=== PATIENT | female | born 1940 | race Caucasian/White ===

== ENCOUNTER → 2023-04-29 09:05 | Outpatient (REF) | payer MEDICARE, SELFPAY | LOC: DHCBS HW 09:05 | PROVIDERS: ATTENDING PHYSICIAN Nuclear Medicine Nuclear Cardiology; FAMILY PHYSICIAN Internal Medicine | DX: R06.02 Shortness of breath (principal); R07.9 Chest pain, unspecified; R00.2 Palpitations | CPT/HCPCS: 93306 ==

== ENCOUNTER → 2023-06-01 09:24 | Outpatient (REF) | payer MEDICARE, SELFPAY | LOC: RAD 09:24 | PROVIDERS: ATTENDING PHYSICIAN Internal Medicine Rheumatology; FAMILY PHYSICIAN Internal Medicine | DX: M81.0 Age-related osteoporosis without current pathological fracture (principal) | CPT/HCPCS: 77080; 77081 ==

== ENCOUNTER → 2023-06-10 12:01 | Outpatient (REF) | payer MEDICARE, SELFPAY | LOC: RAD 12:01 | PROVIDERS: ATTENDING PHYSICIAN Nurse Practitioner Family | DX: R06.02 Shortness of breath (principal); R05.2 Subacute cough | CPT/HCPCS: 71046 ==

== ENCOUNTER → 2023-08-07 14:11 | Outpatient (REF) | payer MEDICARE, SELFPAY | LOC: HWRAD 14:11 | PROVIDERS: ATTENDING PHYSICIAN Nurse Practitioner Adult Health; FAMILY PHYSICIAN Internal Medicine | DX: R05.2 Subacute cough (principal) | CPT/HCPCS: 71250 ==

== ENCOUNTER → 2023-10-06 10:28 | Outpatient (REF) | payer MEDICARE, SELFPAY ==
[2023-10-06 11:20] LABS: % Basophils 0.6 % (0-2); % Immature Granulocytes 0.3 % (0-0.5); % Lymphocytes 16.5 % (20.5-51.1); % Monocytes 6.5 % (1.7-9.3); % Neutrophils 75.1 % (42.2-75.2); Absolute Eosinophils 0.1 10^3/uL (0-0.7); Absolute Lymphocytes 1.2 10^3/uL (1.2-3.4); Absolute Monocytes 0.5 10^3/uL (0.1-0.6); Absolute Neutrophils 5.2 10^3/uL (1.4-6.5); Hematocrit 38.7 % (37.0-47.0); Hemoglobin 12.8 g/dL (12.0-16.0); Mean Corp Hgb Conc. 33.1 g/dL (33.0-37.0); Mean Corpuscular Hgb 30.3 pg (27.0-31.0); Mean Corpuscular Volume 91.5 fL (81.0-99.0); Mean Platelet Volume 10.8 fL (7.4-10.4); Nucleated Red Blood Cells % 0 %; Platelet Count 191 10^3/uL (130-400); Red Blood Cell Count 4.23 10^6/uL (4.20-5.40); Red Cell Dist. Width 14.2 % (11.5-14.5)
[2023-10-06 12:19] LABS: ALT (SGPT) 11 U/L (0-35); AST (SGOT) 18 U/L (14-36); Albumin 4.5 g/dl (3.5-5.0); Alkaline Phosphatase 43 U/L (38-126); Blood Urea Nitrogen 18 mg/dl (7-17); Calcium 10.3 mg/dl (8.4-10.2); Carbon Dioxide 24 mmol/L (22-30); Chloride 105 mmol/L (98-107); Glucose 101 mg/dl (70-99); HDL Cholesterol 36 mg/dl; LDL Cholesterol, Calculated 139 mg/dl; Potassium 4.9 mmol/L (3.5-5.1); Sodium 140 mmol/L (135-145); Total Bilirubin 0.9 mg/dl (0.2-1.3); Total Cholesterol 208 mg/dl (50-199); Total Protein 6.7 g/dl (6.3-8.2); Triglyceride 169 mg/dl (10-149); Very Low Density Lipoprotein 33 mg/dl (0-30); eGFR 55.55
[2023-10-06 12:25] LABS: Amylase 96 U/L (30-110); Lipase 320 U/L (23-300)
[2023-10-06 12:42] LABS: TSH Reflex To Free T4 2.39 uIU/ml (0.47-4.68)
[2023-10-07 12:01] LABS: H. pylori Breath Test Negative (Negative)
== END ==
LOC: REG 10:28
PROVIDERS: ATTENDING PHYSICIAN Nurse Practitioner Family; FAMILY PHYSICIAN Internal Medicine
DX: Z86.19 Personal history of other infectious and parasitic diseases (principal); R35.0 Frequency of micturition; R19.7 Diarrhea, unspecified; R11.0 Nausea; R10.84 Generalized abdominal pain; E78.2 Mixed hyperlipidemia; M06.9 Rheumatoid arthritis, unspecified; E21.3 Hyperparathyroidism, unspecified; G30.9 Alzheimer's disease, unspecified; F43.23 Adjustment disorder with mixed anxiety and depressed mood
CPT/HCPCS: 36415; 80053; 80061; 82150; 83013; 83690; 84443; 85025

== ENCOUNTER → 2023-10-16 07:27 | Outpatient (REF) | payer MEDICARE, SELFPAY | LOC: HWRAD 07:27 | PROVIDERS: ATTENDING PHYSICIAN Nurse Practitioner Family | DX: R74.8 Abnormal levels of other serum enzymes (principal); R11.0 Nausea | CPT/HCPCS: 74177; Q9967 ==

== ENCOUNTER → 2023-11-09 06:42 | Outpatient (REF) | payer MEDICARE, SELFPAY | LOC: RAD 06:42 | PROVIDERS: ATTENDING PHYSICIAN Nurse Practitioner Adult Health; FAMILY PHYSICIAN Internal Medicine | DX: R93.89 Abnormal findings on diagnostic imaging of other specified body structures (principal) | CPT/HCPCS: 71250 ==

== ENCOUNTER → 2023-11-30 12:37 | Outpatient (REF) | payer MEDICARE, SELFPAY ==
[2023-11-30 18:43] LABS: Urine Albumin Trace (Neg - Trace); Urine Bilirubin 3+ (Negative); Urine Character Slightly Cloudy (Clear); Urine Glucose Negative (Negative); Urine Ketone Negative (Negative); Urine Leukocyte 2+ (Negative); Urine Nitrite Positive (Negative); Urine Occult Blood 1+ (Negative); Urine Specific Gravity 1.015 (<1.030); Urine Urobilinogen 4+ (Neg - 1+)
[2023-11-30 18:52] LABS: Urine Color Amber
[2023-11-30 19:16] LABS: Urine Squamous Cell >30 /LPF (Few)
[2023-11-30 19:17] LABS: Urine Bacteria Few (Negative); Urine White Cell >100 /HPF (0-5)
== END ==
LOC: CLAB 12:37
PROVIDERS: ATTENDING PHYSICIAN Nurse Practitioner Family
DX: R30.0 Dysuria (principal)
CPT/HCPCS: 81003; 81015; 87086; 87088; 87186

== ENCOUNTER → 2024-01-23 07:47 | Outpatient (REF) | payer MEDICARE, SELFPAY | LOC: REG 07:47 | PROVIDERS: ATTENDING PHYSICIAN Physician Assistant; FAMILY PHYSICIAN Internal Medicine | DX: M25.559 Pain in unspecified hip (principal); M25.569 Pain in unspecified knee | CPT/HCPCS: 73523; 73560; 73565 ==

== ENCOUNTER → 2024-01-26 11:54 | Outpatient (REF) | payer MEDICARE, SELFPAY | LOC: HWRAD 11:54 | PROVIDERS: ATTENDING PHYSICIAN Nurse Practitioner Adult Health; FAMILY PHYSICIAN Internal Medicine | DX: R93.89 Abnormal findings on diagnostic imaging of other specified body structures (principal) | CPT/HCPCS: 71250 ==

== ENCOUNTER → 2024-04-05 07:57 | Outpatient (REF) | payer MEDICARE, SELFPAY ==
[2024-04-05 08:52] LABS: Hematocrit 40.8 % (37.0-47.0); Hemoglobin 13.4 g/dL (12.0-16.0); Mean Corp Hgb Conc. 32.8 g/dL (33.0-37.0); Mean Corpuscular Hgb 29.6 pg (27.0-31.0); Mean Corpuscular Volume 90.3 fL (81.0-99.0); Mean Platelet Volume 10.9 fL (7.4-10.4); Platelet Count 188 10^3/uL (130-400); Red Blood Cell Count 4.52 10^6/uL (4.20-5.40); Red Cell Dist. Width 13.3 % (11.5-14.5); White Blood Cell Count 5.1 10^3/uL (4.8-10.8)
[2024-04-05 09:14] LABS: Blood Urea Nitrogen 17 mg/dl (7-17); Calcium 9.7 mg/dl (8.4-10.2); Carbon Dioxide 26 mmol/L (22-30); Chloride 104 mmol/L (98-107); Glucose 109 mg/dl (70-99); Potassium 4.7 mmol/L (3.5-5.1); Sodium 139 mmol/L (135-145); eGFR > 60.00
== END ==
LOC: SDSPAT 07:57
PROVIDERS: ATTENDING PHYSICIAN Specialist; FAMILY PHYSICIAN Internal Medicine
DX: Z01.818 Encounter for other preprocedural examination (principal)
CPT/HCPCS: 36415; 80048; 85027; 93005

== ENCOUNTER 2024-04-07 06:23 | Day surgery (SDC) | payer MEDICARE, SELFPAY ==
--- NOTE | 2024-04-05 15:59 | PTCARENOTE ---
Abn ECG, Dr. Lucas notified, no additional interventions requested.
[2024-04-07] VITALS (7 sets, daily range): BP systolic 117–147; BP diastolic 57–74; BMI 28.2
[2024-04-07] MEDS: NORMOSOL-R/PLASMALYTE-A 1000 IV (09:20)
[2024-04-07] MEDS: SYRINGE NON-PUMP 50 ML IRRIG ×2 (11:50→11:51)
[2024-04-07] MEDS: SYRINGE NON-PUMP 50 MG IRRIG ×2 (11:50→11:51)
[2024-04-07] MEDS: DILAUDID 0.25 MG IV ×2 (11:55→12:04)
--- NOTE | 2024-04-07 13:07 | SUR.PHASEI ---
medicated x2 with dilaudid for pain during chemo dwell with relief. chemo drained and piper discontinued using ultrasound technician at 1300. comfortable discharge to [facility] with chemo precautions
== END 2024-04-07 13:44 | disposition home or self-care (01) ==
LOC: SDS 06:23
PROVIDERS: ATTENDING PHYSICIAN Specialist; FAMILY PHYSICIAN Internal Medicine
DX: D30.3 Benign neoplasm of bladder (principal); D49.4 Neoplasm of unspecified behavior of bladder
CPT/HCPCS: 52234; 88305; J9201

== ENCOUNTER 2024-04-09 12:12 | Inpatient (IN) | payer MEDICARE, SELFPAY ==
[2024-04-09] VITALS (10 sets, daily range): BP systolic 122–148; BP diastolic 57–78; BMI 30.9
--- NOTE | 2024-04-09 06:12 | ED.GENMED ---
History of Present Illness
General
Chief Complaint: Abdominal Pain
Time Seen by Provider: 04/09/24 06:12
History of Present Illness
History of Present Illness:
TIME OF INITIAL ENCOUNTER: 6:15 AM
HPI: The patient had TURBT with Dr. Erwin 2 days ago. She also had intravesicular administration of gemcitabine chemo. She had a procedure as she was having frequent UTIs over the year and had a cystoscopy 2 weeks ago that showed the mass. She
has been having URI type of symptoms recently as well but has not had fevers. Her has the same URI type of symptoms. She states that she had a normal bowel movement yesterday.
EXAM:
GENERAL: Well appearing in mild distress
HEENT: Moist oral mucosa, some nasal congestion noted
CARDIOVASCULAR: No murmurs, normal heart rate, regular rhythm, No chest wall tenderness
PULMONARY: No respiratory distress, breath sounds are clear and equal
ABDOMEN: Soft with no peritoneal signs, moderate tenderness in the lower abdomen more so on the right side
NEUROLOGIC: Excellent strength all extremities, no coordination deficits
PSYCHIATRIC: Appropriate mental status, normal insight and judgement
EXTREMITIES: Nontender, no edema, moves all extremities equally
SKIN: No rash, no lesions
NUMBER AND COMPLEXITY OF PROBLEMS ADDRESSED AT THE ENCOUNTER
� Chronic conditions affecting care: Some memory impairment, hyperlipidemia, has had ovarian cysts, bullous pemphigoid, anxiety
� Acute Exacerbation and/or Progression of Chronic Illness:
� Differential Diagnosis includes: Constipation, procedural complication, appendicitis, mesenteric adenitis, abdominal wall strain
AMOUNT AND/OR COMPLEXITY OF DATA TO BE REVIEWED AND ANALYZED
� I performed an independent evaluation of and my interpretation is:
EKG:
CT: I personally reviewed CT imaging. There is a lot of inflammatory changes around the bladder. Radiologist suspects extra neobladder rupture. Patient also is noted to have bilateral hydroureter as well as reactive ileus.
X-rays:
Laboratory Studies: White count 8.6, sodium 133, bicarb 19, BUN 39, creatinine 3.4, urinalysis suggest infection
Other:
� Review of other/old records: I reviewed Dr. Erwin' note from the other day. The patient's last creatinine was normal.
� Clinical information was obtained by an independent historian: I spoke to at bedside
� Prescriptions/Medications Considered but not given:
� Further testing considered but not performed:
RISK OF COMPLICATIONS AND/OR MORBIDITY OR MORTALITY OF PATIENT MANAGEMENT
� Social determinants of health affecting care: Lives at home
� Discussion with other providers: Dr. Hoffman below
� Escalation of care including admission/observation vs risk of discharge considered: The patient appears rather uncomfortable. Low-dose Dilaudid given. Will obtain CT imaging given the amount of tenderness.
ANY OTHER UPDATES:
The patient is found to be in RUTH. She was initially given IV fluids. She did not initially have a sensation to void.
7:45 AM: I discussed case with Dr. Guido who will admit to his service. Will place Syed and placed on antibiotics as well.
Past History
Past History
ED Past Medical History: Other (Rheumatoid arthritis-on biologics and plaquenil, remote hx of pancreatitis)
ED Past Surgical History: Cholecystectomy and Gynecological (hyster)
Social History
Tobacco: Non-smoker
Personal:
Living: with family
Phy Exam
Physical Exam
Physical Exam:
See HPI
Course
Orders/Labs/Results
Orders:
Orders
04/09/24 06:22
CT Abd/pel Without Iv Or Oral Urgent
Reason For Exam: RLQ pain,'not sure if still has append', TURBPT 2d
0.9% Sodium Chloride 500 ml [Nss] 500 ml IV BOLUS
HYDROmorphone [Dilaudid] 0.5 mg IV NOW STA
Ondansetron Injectable [Zofran] 4 mg IV NOW STA
04/09/24 06:32
Complete Blood Count/With Diff Urgent
Comprehensive Metabolic Panel Urgent
Lipase Urgent
04/09/24 07:42
Syed Placement- Treatment ONCE
Reason for insertion: Acute Kidney Injury
CefTRIAXone [Rocephin] 1,000 mg IV NOW STA
04/09/24 08:03
Urinalysis Reflex To Culture Urgent
Date Specimen was Collected: 04/09/24
Time Specimen was Collected: 07:11
Urine Microscopic Reflex Cult Urgent
Urine Culture Urgent
MARILOU Source: U
Specimen Description:
Date Specimen was Collected: 04/09/24
Time Specimen was Collected: 07:11
04/09/24 08:05
Sterile Water [Sterile Water For Injection] 10 ml .ROUTE .STK-MED ONE
04/09/24 Lunch
Regular
At Your Request: Full Participation
04/09/24 11:41
Admit Patient As Directed
Co-Sign Provider:
Level of Care: Inpatient admission
Assign to:: Medical/Surgical
Physician / Group: Peffer
Diagnosis: Bladder tumor, bladder perforation, urine leak, RUTH
Reason for Hospitalization: Monitoring renal function
Expected length of stay greater than two midnights?: Yes
ELOS- Estimated Length of Stay in days: 3
I certify the patient meets the requirements for IP care: Yes
Code Status As Directed
Resuscitation Status: Full Code
Activity As Directed
Activity Level: Out of Bed- Ad Lidya
Anti-embolism (TOOTIE) Hose As Directed
Type: Knee high
Catheter- Indwelling As Directed
Reason for insertion: Urology Determination
Type: Indwelling
Intake/ Output As Directed
Frequency: Per unit guidelines
Pneumatic Compression Sleeves As Directed
Type: Knee high
Vital Signs As Directed
Frequency: Per unit guidelines
PRN Pain Medication Management As Directed
May give lesser potent ordered pain med per pt: Yes
preference::
Protocol:: Medication orders for pain may be administered in a
manner that supports deferring to patient preference
when the pt is:
- Requesting an ordered lesser potent pain medication.
Least to most potent pain medications are defined
as: acetaminophen < NSAID < tramadol < opioids
(morphine, oxycodone, hydromorphone).
- Requesting a lesser dose of the same medication IF
ORDERED.
- Requesting a less intrusive route of administration
if both routes are prescribed by the provider (PO <
IV).
DX Deep Vein Thrombosis Video Routine
04/09/24 11:45
0.9% Sodium Chloride 1000 ml [Nss] 1,000 ml IV 125 mls/hr
Acetaminophen [Tylenol] 650 mg PO Q4HPRN PRN
HYDROmorphone [Dilaudid] 0.5 mg IV Q2HPRN PRN
Ondansetron Injectable [Zofran] 4 mg IV Q6HPRN PRN
Oxycodone/Acetaminophen [Percocet 5/325] 1 tablet PO Q4HPRN PRN
04/09/24 20:00
doxycycline hyclate 100 mg PO BID
04/09/24 22:00
Donepezil [Aricept] 5 mg PO HS
Escitalopram Oxalate [Lexapro] 10 mg PO HS
04/10/24 06:00
Basic Metabolic Panel IN AM
Complete Blood Count/No Diff IN AM
Magnesium IN AM
Phosphorus IN AM
04/10/24 08:00
Mycophenolate Mofetil 500 mg PO DAILY
Pravastatin Sodium [Pravachol] 40 mg PO DAILY
Abnormal Lab Results
04/09/24 04/09/24
06:32 08:03
MPV 11.0 H fL
(7.4-10.4)
Absolute Neuts (auto) 7.6 H 10^3/uL
(1.4-6.5)
Absolute Lymphs (auto) 0.6 L 10^3/uL
(1.2-3.4)
Neutrophils % 88.8 H %
(42.2-75.2)
Lymphocytes % 6.4 L %
(20.5-51.1)
Sodium 133 L mmol/L
(135-145)
Carbon Dioxide 19 L mmol/L
(22-30)
BUN 39 H mg/dl
(7-17)
Creatinine 3.4 H mg/dL
(0.6-1.0)
Glucose 103 H mg/dl
(70-99)
Calcium 8.3 L mg/dl
(8.4-10.2)
Total Protein 6.0 L g/dl
(6.3-8.2)
Ur Occult Blood Reflex 4+ A
(Negative)
Leukocyte Esterase Rfl 1+ A
(Negative)
Urine RBC 16-20 A /HPF
(0-2)
Urine WBC (Reflex) 30-40 A /HPF
(0-5)
Urine Bacteria (Reflex) Few A
(Negative)
04/09/24 06:32
04/09/24 06:32
Vital Signs
Initial and Last Documented VS:
Initial Vital Signs
Temp Pulse Resp BP Pulse Ox
36.8 C 79 20 123/57 98
04/09/24 05:55 04/09/24 05:55 04/09/24 05:55 04/09/24 05:55 04/09/24 05:55
Last Documented Vital Signs
Temp Pulse Resp BP Pulse Ox
36.8 C 75 17 140/63 94
04/09/24 05:55 04/09/24 08:15 04/09/24 08:15 04/09/24 08:00 04/09/24 08:15
*Critical Care Note
Total Time (30-74mins, 75-104mins- exclusive of procedures): Not Applicable
ED Attending Note
-
Portions of this chart may have been created with voice recognition software.� Occasional wrong word or��sound alike� substitutions may have occurred due to the inherent limitations of voice recognition software.
Discharge Plan
Departure
Patient Disposition: Admit
Date of Disposition: 04/09/24
Time of Disposition: 07:46
Presentation/result/management discussed w/ accepting MD/DO: Hospitalist
Discharge Problem:
Acute kidney injury
Prescriptions:
No Action
pravastatin 20 MG tablet
40 mg PO DAILY
cyanocobalamin (vitamin B-12) 1,000 MCG tablet
1,000 mcg PO DAILY
hydroxychloroquine 200 MG tablet
200 mg PO DAILY
cholecalciferol (vitamin D3) 1,000 UNITS tablet
1,000 units PO DAILY
biotin 1 MG capsule
1 mg PO DAILY
escitalopram oxalate 10 MG tablet
10 mg PO HS
donepezil 5 mg tablet
5 mg PO HS
mycophenolate mofetil 500 mg Tablet
500 mg PO DAILY
docusate sodium [Colace] 100 mg Capsule
100 mg PO DAILY
Culturelle 10 billion cell Capsule
1 cap PO DAILY
doxycycline hyclate 100 mg Tablet
100 mg PO BID
PreserVision AREDS-2 250-90-40-1 mg Capsule
1 tab PO DAILY
Referrals:
Valeriano Hutson DO [Family Provider] -
Interventions
Interventions:
*Risk Screen - Suicide Last Done: 04/09/24 05:55
*General Assessment Last Done: 04/09/24 05:55
*Neglect/Abuse Screening Last Done: 04/09/24 05:55
ED- Fall Risk Assessment Last Done: 04/09/24 05:55
*ED COVID-19 Vaccine History Last Done: 04/09/24 05:55
KL-Vgdlag-Gzvvoehovu Assessment Last Done: 04/09/24 06:24
ED-Skin Assessment Last Done: 04/09/24 06:24
Discharge Date and Time
Print Language: LUXEMBOURGISH
[2024-04-09] MEDS: ZOFRAN 4 MG IV (06:36)
[2024-04-09] MEDS: DILAUDID 0.5 MG IV (06:36)
[2024-04-09] MEDS: NSS 500 IV (06:36)
[2024-04-09 06:59] LABS: ALT (SGPT) 10 U/L (0-35); AST (SGOT) 21 U/L (14-36); Albumin 3.9 g/dl (3.5-5.0); Alkaline Phosphatase 50 U/L (38-126); Blood Urea Nitrogen 39 mg/dl (7-17); Calcium 8.3 mg/dl (8.4-10.2); Carbon Dioxide 19 mmol/L (22-30); Chloride 102 mmol/L (98-107); Estimated Creatinine Clearance 14 ml/min; Glucose 103 mg/dl (70-99); Lipase 259 U/L (23-300); Potassium 4.7 mmol/L (3.5-5.1); Sodium 133 mmol/L (135-145); Total Bilirubin 1.2 mg/dl (0.2-1.3); eGFR 12.79
[2024-04-09 07:05] LABS: % Basophils 0.3 % (0-2); % Eosinophils 0.2 % (0-6); % Immature Granulocytes 0.3 % (0-0.5); % Lymphocytes 6.4 % (20.5-51.1); % Neutrophils 88.8 % (42.2-75.2); Absolute Lymphocytes 0.6 10^3/uL (1.2-3.4); Absolute Monocytes 0.3 10^3/uL (0.1-0.6); Absolute Neutrophils 7.6 10^3/uL (1.4-6.5); Hematocrit 37.6 % (37.0-47.0); Hemoglobin 12.5 g/dL (12.0-16.0); Mean Corp Hgb Conc. 33.2 g/dL (33.0-37.0); Mean Corpuscular Hgb 29.4 pg (27.0-31.0); Mean Corpuscular Volume 88.5 fL (81.0-99.0); Nucleated Red Blood Cells % 0 %; Platelet Count 145 10^3/uL (130-400); Red Blood Cell Count 4.25 10^6/uL (4.20-5.40); Red Cell Dist. Width 13.7 % (11.5-14.5); White Blood Cell Count 8.6 10^3/uL (4.8-10.8)
[2024-04-09] MEDS: ROCEPHIN 1000 MG IV (08:06)
[2024-04-09 08:42] LABS: Urine Albumin Trace (Neg - Trace); Urine Bilirubin Negative (Negative); Urine Character Clear (Clear); Urine Color Yellow; Urine Glucose Negative (Negative); Urine Ketone Negative (Negative); Urine Leukocyte 1+ (Negative); Urine Nitrite Negative (Negative); Urine Occult Blood 4+ (Negative); Urine Specific Gravity 1.015 (<1.030); Urine Urobilinogen Negative (Neg - 1+)
[2024-04-09 08:57] LABS: Urine Red Blood Cell 16-20 /HPF (0-2); Urine White Cell 30-40 /HPF (0-5)
[2024-04-09 08:58] LABS: Urine Bacteria Few (Negative)
--- NOTE | 2024-04-09 11:30 | HPS.HSE ---
Family Physician
-
Family Physician: Valeriano Hutson
Chief Complaint
-
Pelvic pain
History of Present Illness
83F with hx Alzheimer's dementia, bladder tumor s/p TURBT, intravesical gemcitabine with Dr. Erwin 04/06
Presenting with worsening lower pelvic/abdominal pain since surgery
No trouble voiding, no hematuria, no flank pain
Labs showed new RUTH, urine mild without major concern for infection
CTAP showed extravesical and extraperitoneal fluid consistent with bladder wall perforation, mild distortion of the bladder due to small fluid collection, and bilateral R>L hydroureter due to possible obstruction
Piper catheter was placed in the ED and patient's pain has improved significantly
Medical History
Past Medical History
Past Medical History: Reports Other (Rheumatoid arthritis-on biologics and plaquenil, remote hx of pancreatitis, dementia)
Past Surgical History: Reports Gynocological and Urological
Social History
Tobacco: Non-smoker
Alcohol: None
Drug: None
Personal:
Living: With Family
Family History
Family History: Not pertinent
Allergies / Home Medications
Allergies reflects when Allergies were last updated in [employer].
Home Medications with original date entered in [employer]
Allergy/Medication List:
NKDA
Review of Systems
-
A 12 point ROS was completed and negative except as noted: Yes
Constitutional: Reports No Symptoms
EENT: Reports No Symptoms
Respiratory: Reports No Symptoms
Cardiac: Reports No Symptoms
Abdomen/GI: Reports Pain
: Reports No Symptoms
Musculoskeletal: Reports No Symptoms
Physical Exam
Vital Signs
Vital Signs
Temp Pulse Resp BP Pulse Ox
98.2 F 75 17 140/63 94
04/09/24 05:55 04/09/24 08:15 04/09/24 08:15 04/09/24 08:00 04/09/24 08:15
Physical Exam
General: Well Developed, Well Nourished and No Apparent Distress
HEENT: NormoCephalic and Moist mucous membranes
Respiratory: Clear and Non Labored Respirations
GI: Soft, Non Distended and Tender (RLQ and LLQ mild tenderness)
Genito-urinary: Clear Urine and Piper
Skin: Warm and Dry
Neuro: Awake, Alert, Oriented and Other (slight language/word finding difficulty)
Psych: Calm and Intact Judgment/Insight
Laboratory Results
-
04/09/24 06:32
04/09/24 06:32
Laboratory Results
Total Bilirubin 1.2 mg/dl (0.2-1.3) 04/09/24 06:32
AST 21 U/L (14-36) 04/09/24 06:32
ALT 10 U/L (0-35) 04/09/24 06:32
Alkaline Phosphatase 50 U/L (38-126) 04/09/24 06:32
Lipase 259 U/L (23-300) 04/09/24 06:32
Impression/Plan
-
IMPRESSION:
83F with bladder tumor s/p TURBT 04/06 presenting with pelvic pain and RUTH
CT showing evidence of extraperitoneal bladder perforation with urine leak
Mild ureteral compression with hydroureter
PLAN:
- Significant improvement in pain with piper catheter in place
- Suspect elevated creatinine is mostly due to urine leak/resorption of urine rather than obstructive uropathy. Trend renal function with piper in place
- Regular diet. Possible ileus on CT but patient having BMs today and no nausea/vomiting
- Pain control
- Plan for discharge home with piper catheter to allow bladder healing. VN for home care
[2024-04-09] MEDS: NSS 1000 IV ×2 (14:05→21:01)
--- NOTE | 2024-04-09 15:04 | PTCARENOTE ---
Received patient from ER via bed around 1500. Urinary catheter draining clear yellow urine. Patient oriented to room. Patient disoriented to time. Call gomez in reach.
[2024-04-09] MEDS: VIBRAMYCIN 100 MG PO (19:24)
[2024-04-09] MEDS: TYLENOL 650 MG PO (19:24)
[2024-04-09] MEDS: LEXAPRO 10 MG PO (21:01)
[2024-04-09] MEDS: ARICEPT 5 MG PO (21:01)
[2024-04-10 06:25] LABS: Hematocrit 34.3 % (37.0-47.0); Hemoglobin 11.4 g/dL (12.0-16.0); Mean Corp Hgb Conc. 33.2 g/dL (33.0-37.0); Mean Corpuscular Hgb 30.2 pg (27.0-31.0); Mean Corpuscular Volume 90.7 fL (81.0-99.0); Mean Platelet Volume 11.1 fL (7.4-10.4); Platelet Count 114 10^3/uL (130-400); Red Blood Cell Count 3.78 10^6/uL (4.20-5.40); Red Cell Dist. Width 13.7 % (11.5-14.5); White Blood Cell Count 5.3 10^3/uL (4.8-10.8)
[2024-04-10 06:45] LABS: Blood Urea Nitrogen 17 mg/dl (7-17); Calcium 8.2 mg/dl (8.4-10.2); Carbon Dioxide 22 mmol/L (22-30); Chloride 109 mmol/L (98-107); Estimated Creatinine Clearance 58 ml/min; Glucose 99 mg/dl (70-99); Magnesium 2.2 mg/dl (1.6-2.3); Phosphorus 2.1 mg/dl (2.5-4.5); Potassium 4.7 mmol/L (3.5-5.1); Sodium 138 mmol/L (135-145); eGFR > 60.00
[2024-04-10 07:40] VITALS: BP 149/73
[2024-04-10] MEDS: CELLCEPT 500 MG PO (08:35)
[2024-04-10] MEDS: PRAVACHOL 40 MG PO (08:35)
[2024-04-10] MEDS: VIBRAMYCIN 100 MG PO (08:35)
--- NOTE | 2024-04-10 10:46 | W.PN.URO.CBU ---
Today's Communication / Plan
-
Discharge with piper
Assessment / Plan
-
83F with bladder tumor s/p TURBT 04/06 presenting with pelvic pain and RUTH
CT showing evidence of extraperitoneal bladder perforation with urine leak
Mild ureteral compression with hydroureter
PLAN:
- Significant improvement in pain with piper catheter in place
- RUTH resolved. Suspect elevated creatinine was due to urine leak/resorption of urine rather than obstructive uropathy
- Regular diet. Possible ileus on CT but patient having BMs and tolerating diet
- Discharge home with piper catheter to allow bladder healing. VN for home care
- Outpatient follow up with Dr. Erwin for piper management
Diagnosis
-
Date of Service: April 10, 2024
-
Patient Diagnosis: bladder tumor
bladder perforation, extraperitoneal
Post Op Day:
Subjective
-
feeling well
minimal pain
poor sleep due to hospital noise
Objective
-
Vital Signs
Temp Pulse Resp BP Pulse Ox
99.1 F 77 16 149/73 95
04/10/24 07:40 04/10/24 07:40 04/10/24 07:40 04/10/24 07:40 04/10/24 07:40
Intake and Output
04/09/24 04/10/24 04/11/24
06:59 06:59 06:59
Intake Total 1979 / 1979
Output Total 4850 / 4850
Balance -2870 / -2870
Intake:
Oral fluids 480 / 480
IV fluids (Total) 1500 / 1500
Output:
Urine, Piper 4850 / 4850
Laboratory Results
04/10/24 05:56
04/10/24 05:56
Physical Exam
-
General - well developed, well nourished, no acute distress
Chest - clear bilaterally
Abdomen - soft, non-tender
Clear urine in piper
Skin - warm & dry with no rash
Neuro - AOx3, no motor deficits
Extremities - no clubbing, no cyanosis, no edema
--- NOTE | 2024-04-10 10:53 | W.DS.TRANS ---
DC Summary - Stock Buyer
-
Discharge Instructions:
Discharge Diagnosis/Procedures Bladder tumor
Bladder wall perforation
Diet No restrictions
Activity No restrictions
Driving Restrictions As prior to admission
Bathing Restrictions None
Other Services VN
Instructions:
Stand-Alone Forms:
Changes to Home Medications: No
Discharge Medications:
DC Medications w/original date entered in [employer]
pravastatin 20 mg tablet 40 mg PO DAILY High cholesterol 07/25/09
biotin 1 mg capsule 1 mg PO DAILY Supplement 01/28/20
cholecalciferol (vitamin D3) 25 mcg (1,000 unit) tablet 1,000 units PO DAILY Supplement 01/28/20
cyanocobalamin (vitamin B-12) 1,000 mcg tablet 1,000 mcg PO DAILY Supplement 01/28/20
escitalopram oxalate 10 mg tablet 10 mg PO HS Mental Health/Anxiety 01/28/20
hydroxychloroquine 200 mg tablet 200 mg PO DAILY ANTI MALARIAL 01/28/20
Lactobacillus rhamnosus GG 10 billion cell capsule (Culturelle) 1 cap PO DAILY Supplement 04/04/24
docusate sodium 100 mg capsule (Colace) 100 mg PO DAILY STOOL SOFTENER 04/04/24
donepezil 5 mg tablet 5 mg PO HS Mental Health/Anxiety 04/04/24
doxycycline hyclate 100 mg tablet 100 mg PO BID Infection 04/04/24
mycophenolate mofetil 500 mg tablet 500 mg PO DAILY Transplant 04/04/24
vit C 250 mg-vit E 90 mg-zinc 40 mg-copper 1 [id number] capsule (PreserVision AREDS-2) 1 tab PO DAILY Supplement 04/04/24
denosumab 60 mg/mL subcutaneous syringe (Prolia) 60 mg SC [id number] Bone-Modifying Agent 04/09/24
ibuprofen 200 mg tablet (Advil) 200 mg PO BIDPRN PRN mild pain 04/09/24
lecanemab-irmb 100 mg/mL intravenous solution (Leqembi) 500 mg IV Q2W Monoclonal Antibody 01/25/25
Home Medication Changes
Pending Results: No
--- NOTE | 2024-04-10 11:30 | CM ---
Addendum entered by Nadia Caprio RN 04/10/24 12:15:
[facility] has accepted.
Original Note:
Reviewed the chart notes and spoke with the patient and spouse at the bedside. The patient resides with her spouse in two story home with no steps to enter. Only DME in home are shower grab bars. No VN/SNF in the past. Patient's PCP is Valeriano
Shaun and pharmacy is [address] [place]. The patient is being discharged with a piper in place. Discussed VN with patient and spouse. [facility] VN selected. Referral sent in [facility]. CM continues to be available to patient/family
and is monitoring medical plan for needs at discharge.
Plan: Discharge to home with [facility] VN services.
[2024-04-10 12:00] VITALS: BP 135/78
[2024-04-10] MEDS: TYLENOL 650 MG PO (12:06)
[2024-04-10] MEDS: STERILE WATER FOR INJECTION 10 ML IV (12:06)
[2024-04-10] MEDS: ROCEPHIN 1000 MG IV (12:07)
== END 2024-04-10 13:15 | disposition home health service (06) | DRG 699 ==
LOC: 2 SOUTH 12:12
PROVIDERS: ADMITTING PHYSICIAN Urology; EMERGENCY PHYSICIAN Emergency Medicine; FAMILY PHYSICIAN Internal Medicine
DX: S37.29XA Other injury of bladder, initial encounter (principal); N13.4 Hydroureter; N17.9 Acute kidney failure, unspecified; J06.9 Acute upper respiratory infection, unspecified; M06.9 Rheumatoid arthritis, unspecified; F02.80 Dementia in other diseases classified elsewhere, unspecified severity, without behavioral disturbance, psychotic disturbance, mood disturbance, and anxiety; G30.9 Alzheimer's disease, unspecified; D49.4 Neoplasm of unspecified behavior of bladder; N13.5 Crossing vessel and stricture of ureter without hydronephrosis; N32.89 Other specified disorders of bladder; X58.XXXA Exposure to other specified factors, initial encounter; Z90.49 Acquired absence of other specified parts of digestive tract; Z87.440 Personal history of urinary (tract) infections; Z79.624 Long term (current) use of inhibitors of nucleotide synthesis
CPT/HCPCS: 88305; 51702; 74176; 80048; 80053; 81003; 81015; 83690; 83735; 84100; 85025; 85027; 87086; 96374; 96375; 99285

== ENCOUNTER → 2024-05-04 08:20 | Outpatient (REF) | payer MEDICARE, SELFPAY ==
[2024-05-04 09:50] LABS: % Basophils 0.6 % (0-2); % Eosinophils 1.3 % (0-6); % Immature Granulocytes 0.3 % (0-0.5); % Lymphocytes 21.9 % (20.5-51.1); % Monocytes 7.9 % (1.7-9.3); Absolute Eosinophils 0.1 10^3/uL (0-0.7); Absolute Lymphocytes 1.4 10^3/uL (1.2-3.4); Absolute Monocytes 0.5 10^3/uL (0.1-0.6); Absolute Neutrophils 4.2 10^3/uL (1.4-6.5); Hematocrit 42.1 % (37.0-47.0); Hemoglobin 13.7 g/dL (12.0-16.0); Mean Corp Hgb Conc. 32.5 g/dL (33.0-37.0); Mean Corpuscular Volume 92.1 fL (81.0-99.0); Mean Platelet Volume 11.1 fL (7.4-10.4); Nucleated Red Blood Cells % 0 %; Platelet Count 235 10^3/uL (130-400); Red Blood Cell Count 4.57 10^6/uL (4.20-5.40); Red Cell Dist. Width 13.9 % (11.5-14.5); White Blood Cell Count 6.2 10^3/uL (4.8-10.8)
[2024-05-04 11:13] LABS: ALT (SGPT) 12 U/L (0-35); AST (SGOT) 19 U/L (14-36); Albumin 4.7 g/dl (3.5-5.0); Alkaline Phosphatase 53 U/L (38-126); Blood Urea Nitrogen 19 mg/dl (7-17); Calcium 9.6 mg/dl (8.4-10.2); Carbon Dioxide 24 mmol/L (22-30); Chloride 103 mmol/L (98-107); Glucose 94 mg/dl (70-99); HDL Cholesterol 45 mg/dl; Iron 99 ug/dl (37-170); LDL Cholesterol, Calculated 141 mg/dl; Potassium 4.6 mmol/L (3.5-5.1); Sodium 137 mmol/L (135-145); Total Cholesterol 218 mg/dl (50-199); Total Protein 6.8 g/dl (6.3-8.2); Triglyceride 160 mg/dl (10-149); Very Low Density Lipoprotein 32 mg/dl (0-30); eGFR > 60.00
[2024-05-04 11:23] LABS: Percent Saturation 31 % (20-50); Total Iron Binding Capacity 310 ug/dl (265-497)
[2024-05-04 11:49] LABS: Ferritin 30.3 ng/ml (11.1-264.0)
[2024-05-04 14:01] LABS: C-Reactive Protein < 5.00 mg/L (0.0-10.00)
[2024-05-04 14:36] LABS: Ferritin 29.4 ng/ml (11.1-264.0); TSH 0.15 uIU/ml (0.47-4.68)
[2024-05-04 15:08] LABS: Folate 16.1 ng/ml (2.76-20); Vitamin B12 886 pg/ml (239-931)
[2024-05-05 17:05] LABS: Free T4 0.86 ng/dl (0.78-2.19)
== END ==
LOC: REG 08:20
PROVIDERS: ATTENDING PHYSICIAN Internal Medicine; FAMILY PHYSICIAN Internal Medicine Rheumatology; REFERRING PHYSICIAN Dermatology Procedural Dermatology
DX: E78.2 Mixed hyperlipidemia (principal); L65.9 Nonscarring hair loss, unspecified; F03.A4 Unspecified dementia, mild, with anxiety; Z86.19 Personal history of other infectious and parasitic diseases; E55.9 Vitamin D deficiency, unspecified; R94.6 Abnormal results of thyroid function studies
CPT/HCPCS: 36415; 80053; 80061; 82306; 82607; 82728; 82746; 83540; 83550; 84439; 84443; 85025; 86140

== ENCOUNTER → 2024-06-04 11:47 | Outpatient (REF) | payer MEDICARE, SELFPAY | LOC: DHSLP 11:47 | PROVIDERS: ATTENDING PHYSICIAN Internal Medicine Critical Care Medicine; FAMILY PHYSICIAN Internal Medicine | DX: G47.33 Obstructive sleep apnea (adult) (pediatric) (principal); R09.02 Hypoxemia | CPT/HCPCS: 95810 ==